=== PATIENT | male | born 1965 | race Caucasian/White ===

== ENCOUNTER 2017-05-30 21:32 | Inpatient (IN) | payer SELFPAY ==
[~2017-05-30] VITALS: Ht 167.6 cm; Wt 87.5 kg
[~2017-05-30 21:32] MED LIST: FERR-43 PO; FURO20TA4 PO; OMEP20CA10 PO
[2017-05-31] VITALS (8 sets, daily range): BP systolic 90–118; BP diastolic 50–72
[2017-05-31] MEDS ORDERED: ONDANSETRON HCL 4MG/2ML VIAL IV ONE
[2017-05-31] MEDS ORDERED: FAMOTIDINE 20MG/2ML VIAL IV ONE
[2017-05-31 00:39] LABS: CHLORIDE 101 mEq/L (98-107)
[2017-05-31 00:45] LABS: INR 1.3; PARTIAL THROMBOPLASTIN TIME 25.6 sec (24.0-34.0); PROTHROMBIN TIME 14.1 sec
[2017-05-31 00:47] LABS: CARBON DIOXIDE 26 mEq/L (21-32); ETHANOL BLOOD < 10 mg/dL
[2017-05-31 01:23] LABS: BASOPHILS % 0.6 % (0.0-2.0); EOSINOPHILS % 1.8 % (0.0-5.0); HEMATOCRIT. 26.3 % (42.0-52.0); HEMOGLOBIN. 8.6 g/dL (14.0-18.0); LYMPHOCYTES % 8.5 % (20.0-50.0); MEAN CORPUSCULAR HEMOGLOBIN 24.2 pg (28.0-32.0); MEAN CORPUSCULAR VOLUME 74.3 fL (80.0-94.0); MONOCYTES % 8.5 % (2.0-8.0); NEUTROPHILS % 80.6 % (40.0-76.0); RED BLOOD CELL COUNT 3.54 mill/uL (4.7-6.1); RED CELL DISTRIBUTION WIDTH 20.1 % (11.6-14.6)
[2017-05-31 01:26] LABS: PLATELET 36 x1000/uL (130-400)
[2017-05-31] MEDS ORDERED: OCTREOTIDE 1,000 MCG in SODIUM CHLORIDE 0.9% 100 ML IV ONE (05:15)
[2017-05-31 05:23] LABS: CLARITY URINE CLEAR (CLEAR); COLOR URINE DARK YELLOW (YELLOW); GLUCOSE URINE TRACE (NEGATIVE); KETONES URINE 2+ (NEGATIVE); LEUKOCYTE ESTERASE URINE NEGATIVE (NEGATIVE); NITRITE URINE POSITIVE (NEGATIVE); OCCULT BLOOD URINE NEGATIVE (NEGATIVE); PH URINE 6.5 (4.5-8.0); PROTEIN URINE TRACE (NEGATIVE); SPECIFIC GRAVITY URINE 1.035 (1.005-1.030)
[2017-05-31] MEDS ORDERED: OCTREOTIDE 1,000 MCG in SODIUM CHLORIDE 0.9% 98 ML IV SCH (06:15)
[2017-05-31 07:07] LABS: PLATELET ESTIMATE MARKEDLY DECREASED
[2017-05-31] MEDS ORDERED: DIPHENHYDRAMINE 50MG/ML VIAL IV PRN (11:00)
[2017-05-31] MEDS ORDERED: CLONIDINE 0.1MG TABLET PO PRN (11:00)
[2017-05-31] MEDS ORDERED: IPRATROPIUM/ALBUTEROL 0.5-3(2.5)MG/3ML NEB INH PRN (11:00)
[2017-05-31] MEDS ORDERED: MAGNESIUM/ALUMINUM HYDROXIDE/SIMETHICONE 30ML UDC PO PRN (11:00)
[2017-05-31] MEDS ORDERED: LORAZEPAM 2MG/ML CPJ IV PRN (11:00)
[2017-05-31] MEDS ORDERED: PANTOPRAZOLE 80 MG in SODIUM CHLORIDE 0.9% 80 ML IV SCH (12:30)
[2017-05-31] MEDS: ONDANSETRON HCL 4MG/2ML VIAL IV PRN (20:34)
[2017-05-31] MEDS: PANTOPRAZOLE SODIUM 40 MG/VIAL IV SCH (20:34)
[2017-06-01] VITALS (21 sets, daily range): BP systolic 87–135; BP diastolic 52–91
[2017-06-01] MEDS: ONDANSETRON HCL 4MG/2ML VIAL IV PRN (02:54)
[2017-06-01] MEDS: ACETAMINOPHEN 325MG TABLET PO PRN (02:55)
[2017-06-01 06:04] LABS: INR 1.7; PARTIAL THROMBOPLASTIN TIME 23.6 sec (24.0-34.0); PROTHROMBIN TIME 17.4 sec
[2017-06-01 06:27] LABS: BASOPHILS % 0.4 % (0.0-2.0); HEMATOCRIT. 24.2 % (42.0-52.0); HEMOGLOBIN. 7.9 g/dL (14.0-18.0); LYMPHOCYTES % 9.7 % (20.0-50.0); MEAN CORPUSCULAR HEMOGLOBIN 27.2 pg (28.0-32.0); MEAN PLATELET VOLUME 9.4 fl (7.4-10.4); MONOCYTES % 11.6 % (2.0-8.0); NEUTROPHILS % 78.3 % (40.0-76.0); PLATELET 137 x1000/uL (130-400); RED BLOOD CELL COUNT 2.91 mill/uL (4.7-6.1); RED CELL DISTRIBUTION WIDTH 20.9 % (11.6-14.6)
[2017-06-01] MEDS: PANTOPRAZOLE SODIUM 40 MG/VIAL IV SCH ×2 (08:11→21:59)
[2017-06-01] MEDS ORDERED: SIMETHICONE 40 MG/0.6 ML 30ML ONE (12:15)
[2017-06-01] MEDS ORDERED: FENTANYL CITRATE/PF 50MCG/ML 2ML VIAL ONE (12:15)
[2017-06-01] MEDS ORDERED: MIDAZOLAM HCL 5 MG/5 ML VIAL ONE (12:15)
[2017-06-01] MEDS ORDERED: FENTANYL CITRATE/PF 50MCG/ML 2ML VIAL IV PRN (12:30)
[2017-06-01] MEDS ORDERED: MIDAZOLAM HCL 5 MG/5 ML VIAL IV PRN (12:30)
[2017-06-01] MEDS ORDERED: OCTREOTIDE 1,000 MCG in SODIUM CHLORIDE 0.9% 100 ML IV ONE (13:00)
[2017-06-01] MEDS ORDERED: SODIUM CHLORIDE 0.9% 10ML VIAL ONE (13:47)
[2017-06-01] MEDS ORDERED: OCTREOTIDE ACETATE 50 MCG/ML 1ML IV SCH (14:00)
[2017-06-01] MEDS: OCTREOTIDE 1,000 MCG in SODIUM CHLORIDE 0.9% 100 ML IV SCH (14:07)
[2017-06-01 18:51] LABS: HEMATOCRIT 30.2 % (42.0-52.0); HEMOGLOBIN 9.9 g/dL (14.0-18.0)
[2017-06-01] MEDS: CHLORDIAZEPOXIDE 25MG CAPSULE PO SCH (21:58)
[2017-06-02] VITALS (35 sets, daily range): BP systolic 63–135; BP diastolic 34–91
[2017-06-02 02:19] LABS: HEMATOCRIT 27.6 % (42.0-52.0); HEMOGLOBIN 9.4 g/dL (14.0-18.0)
[2017-06-02] MEDS: CHLORDIAZEPOXIDE 25MG CAPSULE PO SCH ×3 (06:00→22:00)
[2017-06-02] MEDS ORDERED: SODIUM CHLORIDE 0.9% 1,000 ML IV SCH (09:15)
[2017-06-02 09:48] LABS: HEMOGLOBIN 9.4 g/dL (14.0-18.0)
[2017-06-02] MEDS: PROPRANOLOL HCL 20MG TABLET PO SCH ×2 (10:00→21:00)
[2017-06-02] MEDS: OCTREOTIDE 1,000 MCG in SODIUM CHLORIDE 0.9% 100 ML IV SCH (10:11)
[2017-06-02] MEDS ORDERED: ACETAMINOPHEN 650MG SUPP PR PRN ×2 (11:30→17:30)
[2017-06-02 15:44] LABS: HEMATOCRIT 28.2 % (42.0-52.0); HEMOGLOBIN 9.2 g/dL (14.0-18.0)
[2017-06-02 16:00] LABS: CARBON DIOXIDE 25 mEq/L (21-32); CHLORIDE 116 mEq/L (98-107)
[2017-06-02] MEDS: SODIUM CHLORIDE 0.45% 1,000 ML IV SCH (17:37)
[2017-06-02 17:46] LABS: HEMATOCRIT. 27.7 % (42.0-52.0); HEMOGLOBIN. 9.1 g/dL (14.0-18.0); MEAN CORPUSCULAR HEMOGLOBIN 28.3 pg (28.0-32.0); MEAN CORPUSCULAR VOLUME 85.9 fL (80.0-94.0); MEAN PLATELET VOLUME 8.8 fl (7.4-10.4); PLATELET 138 x1000/uL (130-400); RED BLOOD CELL COUNT 3.22 mill/uL (4.7-6.1); RED CELL DISTRIBUTION WIDTH 19.7 % (11.6-14.6)
[2017-06-02] MEDS: LORAZEPAM 2MG/ML CPJ IV PRN ×3 (17:54→22:57)
[2017-06-02 18:12] LABS: BG BASE EXCESS -9.7 mmol/L (-2.0-2.0); BG CARBOXYHEMOGLOBIN 0.3 % (0.5-1.5); BG DEOXYHEMOGLOBIN 1.2 % (0.0-5.0); BG FRACTION INSPIRED OXYGEN 100; BG HCO3 ACT 14.6 mmol/L (22.0-26.0); BG METHEMOGLOBIN 0.3 % (0.0-1.5); BG OXYGEN SATURATION 98.8 % (92.0-98.5); BG OXYHEMOGLOBIN 98.2 % (94.0-97.0); BG PCO2 26.9 mmHg (35.0-45.0); BG PH 7.352 (7.350-7.450); BG PO2 226.4 mmHg (75.0-100.0); BG SAMPLE SITE RIGHT RADIAL; BG TOTAL HEMOGLOBIN 10.2 g/dL (12.0-18.0); BG VENT MODE MASK - NRB
[2017-06-02 18:53] LABS: AMMONIA 325 uMol/L (<32)
[2017-06-02] MEDS ORDERED: CEFTRIAXONE 1 G PREMIX 50 ML IV SCH (20:00)
[2017-06-02] MEDS: LACTULOSE 20G/30ML UDC PO SCH ×2 (20:38→23:52)
[2017-06-02] MEDS ORDERED: LEVOFLOXACIN 500MG PREMIX 100 ML IV SCH (21:00)
[2017-06-02] MEDS ORDERED: RIFAXIMIN 550 MG TABLET PO SCH (21:00)
[2017-06-02 21:17] LABS: NUCLEATED RED BLOOD CELLS 3 /100 WBC; PLATELET ESTIMATE SLIGHTLY DECREASED
[2017-06-02] MEDS: LEVETIRACETAM 250 MG in SODIUM CHLORIDE 0.9% 100 ML IV SCH (22:59)
[2017-06-02] MEDS ORDERED: LORAZEPAM 20 MG in DEXT 5% WATER 90 ML IV PRN (23:30)
[2017-06-02] MEDS: ACETAMINOPHEN 325MG TABLET PO PRN (23:53)
[2017-06-03] VITALS (105 sets, daily range): BP systolic 25–160; BP diastolic 16–103
[2017-06-03 00:20] LABS: HEMATOCRIT 29.6 % (42.0-52.0); HEMOGLOBIN 9.1 g/dL (14.0-18.0)
[2017-06-03] MEDS ORDERED: PHENYLEPHRINE 20 MG in DEXT 5% WATER 248 ML IV PRN (02:45)
[2017-06-03] MEDS ORDERED: NOREPINEPHRINE 32 MG in DEXT 5% WATER 468 ML IV PRN (03:15)
[2017-06-03] MEDS: SODIUM CHLORIDE 0.45% 1,000 ML IV SCH (03:38)
[2017-06-03] MEDS ORDERED: PHENYLEPHRINE 40 MG in DEXT 5% WATER 246 ML IV PRN (03:45)
[2017-06-03 04:03] LABS: BG BASE EXCESS -18.1 mmol/L (-2.0-2.0); BG CARBOXYHEMOGLOBIN 0.3 % (0.5-1.5); BG DEOXYHEMOGLOBIN 3.6 % (0.0-5.0); BG FRACTION INSPIRED OXYGEN 100; BG HCO3 ACT 11.2 mmol/L (22.0-26.0); BG METHEMOGLOBIN 0.7 % (0.0-1.5); BG OXYGEN SATURATION 96.4 % (92.0-98.5); BG OXYHEMOGLOBIN 95.4 % (94.0-97.0); BG PCO2 40.8 mmHg (35.0-45.0); BG PH 7.057 (7.350-7.450); BG PO2 133.9 mmHg (75.0-100.0); BG SAMPLE SITE RIGHT RADIAL; BG TIDAL VOLUME(mL) 500 mL; BG TOTAL HEMOGLOBIN 9.5 g/dL (12.0-18.0); BG VENT MODE VENT - A/C; BG VENT RATE 14 set
[2017-06-03] MEDS ORDERED: SODIUM BICARBONATE 8.4% 1 MEQ/ML 50ML SYR IV NR ×2 (04:15→08:30)
[2017-06-03] MEDS: LACTULOSE 20G/30ML UDC PO SCH ×4 (04:23→21:11)
[2017-06-03] MEDS: PROPOFOL 10MG/ML 100ML 100 ML IV PRN ×5 (04:25→17:00)
[2017-06-03] MEDS ORDERED: SODIUM ACETATE 100 MEQ in DEXTROSE 5% WATER 1,000 ML IV SCH (04:45)
[2017-06-03] MEDS: CHLORDIAZEPOXIDE 25MG CAPSULE PO SCH (05:02)
[2017-06-03] MEDS: MIDAZOLAM HCL 100 MG in DEXT 5% WATER 80 ML IV PRN ×2 (05:37→11:01)
[2017-06-03] MEDS ORDERED: VASOPRESSIN 10 UNIT in SODIUM CHLORIDE 0.9% 99.5 ML IV PRN (05:45)
[2017-06-03 05:52] LABS: HEMATOCRIT. 26.9 % (42.0-52.0); MEAN CORPUSCULAR HEMOGLOBIN 33.6 pg (28.0-32.0); MEAN CORPUSCULAR VOLUME 100.7 fL (80.0-94.0); MEAN PLATELET VOLUME 10.3 fl (7.4-10.4); PLATELET 142 x1000/uL (130-400); RED BLOOD CELL COUNT 2.67 mill/uL (4.7-6.1); RED CELL DISTRIBUTION WIDTH 20.8 % (11.6-14.6)
[2017-06-03] MEDS: OCTREOTIDE 1,000 MCG in SODIUM CHLORIDE 0.9% 100 ML IV SCH (06:09)
[2017-06-03 07:50] LABS: BG BASE EXCESS -16.8 mmol/L (-2.0-2.0); BG CARBOXYHEMOGLOBIN 0.1 % (0.5-1.5); BG DEOXYHEMOGLOBIN 1.4 % (0.0-5.0); BG HCO3 ACT 10.8 mmol/L (22.0-26.0); BG METHEMOGLOBIN 0.8 % (0.0-1.5); BG OXYGEN SATURATION 98.6 % (92.0-98.5); BG OXYHEMOGLOBIN 97.7 % (94.0-97.0); BG PCO2 32.3 mmHg (35.0-45.0); BG PH 7.143 (7.350-7.450); BG PO2 197.4 mmHg (75.0-100.0); BG SAMPLE SITE RIGHT BRACHIAL; BG TIDAL VOLUME(mL) 500 mL; BG VENT MODE VENT - A/C; BG VENT RATE 14 set
[2017-06-03] MEDS: LORAZEPAM 2MG/ML CPJ IV PRN (07:53)
[2017-06-03] MEDS ORDERED: PHENYTOIN SODIUM 1,000 MG in SODIUM CHLORIDE 0.9% 100 ML IV NR (08:00)
[2017-06-03] MEDS: LEVETIRACETAM 250 MG in SODIUM CHLORIDE 0.9% 100 ML IV SCH (08:00)
[2017-06-03 08:17] LABS: CARBON DIOXIDE 17 mEq/L (21-32); CHLORIDE 110 mEq/L (98-107)
[2017-06-03] MEDS ORDERED: LORAZEPAM 2MG/ML CPJ IV NR (08:22)
[2017-06-03 08:42] LABS: PHOSPHORUS 13.8 mg/dL (2.5-4.9)
[2017-06-03 08:43] LABS: AMMONIA 762 uMol/L (<32)
[2017-06-03] MEDS ORDERED: CALCIUM GLUCONATE 1,000 MG in DEXT 5% WATER 90 ML IV NR (09:00)
[2017-06-03] MEDS ORDERED: OCTREOTIDE 1,000 MCG in SODIUM CHLORIDE 0.9% 100 ML IV SCH (09:00)
[2017-06-03] MEDS ORDERED: INSULIN REGULAR 0.5UNIT/ML SYR(NEO) IV ONE (09:00)
[2017-06-03] MEDS ORDERED: DEXTROSE 50% WATER 50ML SYRINGE IV NR (09:00)
[2017-06-03] MEDS ORDERED: INSULIN REGULAR (HUMULIN R) UD 100 UNITS/ML SYR IV NR (09:04)
[2017-06-03] MEDS ORDERED: IPRATROPIUM/ALBUTEROL 0.5-3(2.5)MG/3ML NEB HHN PRN (09:15)
[2017-06-03] MEDS ORDERED: PANTOPRAZOLE SODIUM 40 MG/VIAL IV ONE (09:26)
[2017-06-03] MEDS: PANTOPRAZOLE 80 MG in SODIUM CHLORIDE 0.9% 100 ML IV SCH ×2 (09:44→18:52)
[2017-06-03 09:48] LABS: *AMPHETAMINES SCREEN URINE NEGATIVE (NEGATIVE); *BARBITURATES SCREEN URINE NEGATIVE (NEGATIVE); *BENZODIAZEPINES SCREEN URINE PRESUMTIVE POSITIVE (NEGATIVE); *COCAINE SCREEN URINE NEGATIVE (NEGATIVE); CANNABINOID URINE SCREEN NEGATIVE (NEGATIVE); METHADONE URINE SCREEN NEGATIVE (NEGATIVE); OPIATES URINE SCREEN NEGATIVE (NEGATIVE); PHENCYCLIDINE URINE SCREEN NEGATIVE (NEGATIVE)
[2017-06-03] MEDS ORDERED: LACTULOSE 300 ML in WATER FOR INJECTION,STERILE 700 ML PR NR (10:00)
[2017-06-03] MEDS: SODIUM CHLORIDE 0.9% IV PRN ×3 (10:22→21:16)
[2017-06-03] MEDS: VASOPRESSIN IV PRN ×3 (10:22→21:16)
[2017-06-03 10:33] LABS: NUCLEATED RED BLOOD CELLS 9 /100 WBC; PLATELET ESTIMATE NORMAL
[2017-06-03] MEDS: FOLIC ACID 1MG TABLET PO SCH (10:45)
[2017-06-03] MEDS: MULTIVITAMINS,THER W-MINERALS TABLET PO SCH (10:45)
[2017-06-03] MEDS: THIAMINE HCL 100MG TABLET PO SCH (10:45)
[2017-06-03] MEDS: METRONIDAZOLE 500 MG PREMIX 100 ML IV SCH ×2 (11:01→18:03)
[2017-06-03] MEDS: CEFEPIME 1,000 MG in DEXTROSE 5% WATER 50 ML IV SCH (11:01)
[2017-06-03 11:47] LABS: CREATINE KINASE MB FRACTION 60.7 ng/mL (0.5-3.6); D-DIMER 17.68 mg/L FEU (<0.50); INR 2.6; PROTHROMBIN TIME 27.4 sec
[2017-06-03] MEDS: RIFAXIMIN 550 MG TABLET PO SCH ×2 (12:08→21:11)
[2017-06-03 12:44] LABS: TROPONIN I 0.77 ng/mL (0.00-0.04)
[2017-06-03 13:15] LABS: BG BASE EXCESS -8.2 mmol/L (-2.0-2.0); BG CARBOXYHEMOGLOBIN 0.3 % (0.5-1.5); BG DEOXYHEMOGLOBIN 1.2 % (0.0-5.0); BG HCO3 ACT 18.8 mmol/L (22.0-26.0); BG METHEMOGLOBIN 0.6 % (0.0-1.5); BG OXYGEN SATURATION 98.8 % (92.0-98.5); BG OXYHEMOGLOBIN 97.9 % (94.0-97.0); BG PCO2 46.2 mmHg (35.0-45.0); BG PH 7.228 (7.350-7.450); BG PO2 303.9 mmHg (75.0-100.0); BG SAMPLE SITE RIGHT BRACHIAL; BG TIDAL VOLUME(mL) 500 mL; BG TOTAL HEMOGLOBIN 7.8 g/dL (12.0-18.0); BG VENT MODE VENT - A/C; BG VENT RATE 14 set
[2017-06-03] MEDS: IPRATROPIUM/ALBUTEROL 0.5-3(2.5)MG/3ML NEB HHN SCH ×2 (13:41→19:57)
[2017-06-03] MEDS: SODIUM ACETATE 100 MEQ in DEXTROSE 5% WATER 1,000 ML IV SCH (16:30)
[2017-06-03] MEDS ORDERED: SUCCINYLCHOLINE CHLORIDE 200MG/10ML VIAL IV ONE (16:45)
[2017-06-03] MEDS: EPINEPHRINE 4 MG in SODIUM CHLORIDE 0.9% 246 ML IV PRN (18:18)
[2017-06-03 19:04] LABS: HEMATOCRIT 26.4 % (42.0-52.0); HEMOGLOBIN 8.8 g/dL (14.0-18.0); MEAN CORPUSCULAR VOLUME 92.7 fL (80.0-94.0); PLATELET 60 x1000/uL (130-400); RED BLOOD CELL COUNT 2.85 mill/uL (4.7-6.1); RED CELL DISTRIBUTION WIDTH 17.7 % (11.6-14.6)
[2017-06-03] MEDS ORDERED: SODIUM POLYSTYRENE SULFONATE 15 G/60 ML BOT PO NR (19:45)
[2017-06-03] MEDS ORDERED: PHYTONADIONE 10MG/ML AMP SUBCUT NR ×2 (19:45→23:45)
[2017-06-03 20:16] LABS: AMMONIA 95 uMol/L (<32)
[2017-06-03] MEDS ORDERED: LEVETIRACETAM 500 MG in SODIUM CHLORIDE 0.9% 100 ML IV SCH (21:00)
[2017-06-03] MEDS ORDERED: PHENYTOIN SODIUM 100MG/2ML VIAL IV SCH (21:00)
[2017-06-03 21:03] LABS: PHOSPHORUS 11.3 mg/dL (2.5-4.9)
[2017-06-03] MEDS: LEVETIRACETAM 1,000 MG in SODIUM CHLORIDE 0.9% 100 ML IV SCH (21:12)
[2017-06-03] MEDS ORDERED: CALCIUM CHLORIDE 1,000 MG in DEXT 5% WATER 90 ML IV NR (21:30)
[2017-06-03] MEDS: PHENYTOIN SODIUM 300MG in SODIUM CHLORIDE 0.9% 50ML IV SCH (21:49)
[2017-06-03 23:03] LABS: HEMATOCRIT 23.2 % (42.0-52.0); HEMOGLOBIN 7.3 g/dL (14.0-18.0)
[2017-06-03 23:04] LABS: INR 1.9; PROTHROMBIN TIME 20.1 sec
[2017-06-04] VITALS (111 sets, daily range): BP systolic 80–148; BP diastolic 29–82
[2017-06-04] MEDS: SODIUM ACETATE 100 MEQ in DEXTROSE 5% WATER 1,000 ML IV SCH ×4 (00:45→21:02)
[2017-06-04] MEDS: EPINEPHRINE 4 MG in SODIUM CHLORIDE 0.9% 246 ML IV PRN ×3 (00:46→16:02)
[2017-06-04] MEDS: METRONIDAZOLE 500 MG PREMIX 100 ML IV SCH ×3 (01:14→17:11)
[2017-06-04] MEDS: IPRATROPIUM/ALBUTEROL 0.5-3(2.5)MG/3ML NEB HHN SCH ×4 (01:56→20:26)
[2017-06-04 02:41] LABS: HEMATOCRIT 29.6 % (42.0-52.0); HEMOGLOBIN 8.9 g/dL (14.0-18.0)
[2017-06-04] MEDS: OCTREOTIDE 1,000 MCG in SODIUM CHLORIDE 0.9% 100 ML IV SCH (03:17)
[2017-06-04] MEDS: PANTOPRAZOLE 80 MG in SODIUM CHLORIDE 0.9% 100 ML IV SCH ×2 (05:12→16:03)
[2017-06-04] MEDS: LACTULOSE 20G/30ML UDC PO SCH ×3 (05:12→21:20)
[2017-06-04 06:04] LABS: HEMATOCRIT 25.6 % (42.0-52.0); HEMOGLOBIN 8.1 g/dL (14.0-18.0); MEAN CORPUSCULAR HEMOGLOBIN 29.2 pg (28.0-32.0); MEAN CORPUSCULAR VOLUME 92.7 fL (80.0-94.0); PLATELET 64 x1000/uL (130-400); RED BLOOD CELL COUNT 2.77 mill/uL (4.7-6.1)
[2017-06-04 06:11] LABS: PHENYTOIN 6.4 ug/mL (10-20)
[2017-06-04 06:52] LABS: INR 2.3; PROTHROMBIN TIME 24.4 sec
[2017-06-04 07:31] LABS: PHOSPHORUS 15.1 mg/dL (2.5-4.9)
[2017-06-04 07:57] LABS: BG BASE EXCESS -10.4 mmol/L (-2.0-2.0); BG CARBOXYHEMOGLOBIN 0.3 % (0.5-1.5); BG DEOXYHEMOGLOBIN 3.4 % (0.0-5.0); BG FRACTION INSPIRED OXYGEN 40; BG HCO3 ACT 15.4 mmol/L (22.0-26.0); BG OXYGEN SATURATION 96.6 % (92.0-98.5); BG OXYHEMOGLOBIN 95.3 % (94.0-97.0); BG PCO2 34.1 mmHg (35.0-45.0); BG PH 7.274 (7.350-7.450); BG PO2 110.7 mmHg (75.0-100.0); BG SAMPLE SITE RIGHT RADIAL; BG TIDAL VOLUME(mL) 550 mL; BG TOTAL HEMOGLOBIN 8.4 g/dL (12.0-18.0); BG VENT MODE VENT - A/C; BG VENT RATE 16 set
[2017-06-04] MEDS: SODIUM CHLORIDE 0.9% IV PRN (08:26)
[2017-06-04] MEDS: VASOPRESSIN IV PRN (08:26)
[2017-06-04] MEDS: LEVETIRACETAM 1,000 MG in SODIUM CHLORIDE 0.9% 100 ML IV SCH ×2 (08:31→21:20)
[2017-06-04] MEDS: CALCIUM GLUCONATE 1,000 MG in DEXT 5% WATER 90 ML IV SCH ×2 (08:32→21:03)
[2017-06-04] MEDS: RIFAXIMIN 550 MG TABLET PO SCH ×2 (08:57→21:00)
[2017-06-04] MEDS: FOLIC ACID 1MG TABLET PO SCH (08:57)
[2017-06-04] MEDS: THIAMINE HCL 100MG TABLET PO SCH (08:57)
[2017-06-04] MEDS: MULTIVITAMINS,THER W-MINERALS TABLET PO SCH (08:57)
[2017-06-04] MEDS ORDERED: SODIUM BICARBONATE 8.4% 1 MEQ/ML 50ML SYR IV NR (09:36)
[2017-06-04 10:43] LABS: HEMATOCRIT 24.9 % (42.0-52.0)
[2017-06-04 11:16] LABS: AMMONIA 121 uMol/L (<32)
[2017-06-04] MEDS: CEFEPIME 1,000 MG in DEXTROSE 5% WATER 50 ML IV SCH (11:18)
[2017-06-04] MEDS ORDERED: PHENYTOIN SODIUM 600 MG in SODIUM CHLORIDE 0.9% 100 ML IV NR (14:00)
[2017-06-04 16:42] LABS: HEMATOCRIT 23.1 % (42.0-52.0); HEMOGLOBIN 7.8 g/dL (14.0-18.0)
[2017-06-04] MEDS: PHENYTOIN SODIUM 300MG in SODIUM CHLORIDE 0.9% 50ML IV SCH (22:13)
[2017-06-04 23:13] LABS: HEMATOCRIT 29.6 % (42.0-52.0); HEMOGLOBIN 9.8 g/dL (14.0-18.0)
[2017-06-05] VITALS (93 sets, daily range): BP systolic 76–173; BP diastolic 41–99
[2017-06-05] MEDS: PANTOPRAZOLE 80 MG in SODIUM CHLORIDE 0.9% 100 ML IV SCH ×3 (02:19→23:46)
[2017-06-05] MEDS: IPRATROPIUM/ALBUTEROL 0.5-3(2.5)MG/3ML NEB HHN SCH ×4 (02:22→20:02)
[2017-06-05 02:23] LABS: HEMATOCRIT 28.3 % (42.0-52.0); HEMOGLOBIN 9.1 g/dL (14.0-18.0)
[2017-06-05] MEDS: OCTREOTIDE 1,000 MCG in SODIUM CHLORIDE 0.9% 100 ML IV SCH ×2 (02:24→23:47)
[2017-06-05] MEDS: METRONIDAZOLE 500 MG PREMIX 100 ML IV SCH ×3 (02:24→17:24)
[2017-06-05] MEDS: LACTULOSE 20G/30ML UDC PO SCH ×3 (05:34→21:36)
[2017-06-05 05:59] LABS: HEMATOCRIT 27.5 % (42.0-52.0); HEMOGLOBIN 9.1 g/dL (14.0-18.0)
[2017-06-05] MEDS: SODIUM ACETATE 100 MEQ in DEXTROSE 5% WATER 1,000 ML IV SCH ×2 (06:21→17:30)
[2017-06-05] MEDS: EPINEPHRINE 4 MG in SODIUM CHLORIDE 0.9% 246 ML IV PRN (06:21)
[2017-06-05] MEDS: LEVETIRACETAM 1,000 MG in SODIUM CHLORIDE 0.9% 100 ML IV SCH ×2 (09:13→20:51)
[2017-06-05] MEDS: CALCIUM GLUCONATE 1,000 MG in DEXT 5% WATER 90 ML IV SCH (09:13)
[2017-06-05] MEDS: THIAMINE HCL 100MG TABLET PO SCH (10:06)
[2017-06-05] MEDS: CEFEPIME 1,000 MG in DEXTROSE 5% WATER 50 ML IV SCH (10:06)
[2017-06-05] MEDS: FOLIC ACID 1MG TABLET PO SCH (10:06)
[2017-06-05] MEDS: RIFAXIMIN 550 MG TABLET PO SCH ×2 (10:06→20:07)
[2017-06-05] MEDS: MULTIVITAMINS,THER W-MINERALS TABLET PO SCH (10:06)
[2017-06-05 10:24] LABS: HEMATOCRIT 28.9 % (42.0-52.0); HEMOGLOBIN 9.6 g/dL (14.0-18.0)
[2017-06-05] MEDS: PHENYTOIN SODIUM 300MG in SODIUM CHLORIDE 0.9% 50ML IV SCH (20:51)
[2017-06-06] VITALS (93 sets, daily range): BP systolic 72–105; BP diastolic 40–57
[2017-06-06] MEDS: IPRATROPIUM/ALBUTEROL 0.5-3(2.5)MG/3ML NEB HHN SCH ×4 (01:48→20:54)
[2017-06-06] MEDS: SODIUM ACETATE 100 MEQ in DEXTROSE 5% WATER 1,000 ML IV SCH ×3 (02:48→21:24)
[2017-06-06] MEDS: METRONIDAZOLE 500 MG PREMIX 100 ML IV SCH ×3 (02:48→18:04)
[2017-06-06] MEDS: EPINEPHRINE 4 MG in SODIUM CHLORIDE 0.9% 246 ML IV PRN ×2 (03:02→14:14)
[2017-06-06] MEDS: LACTULOSE 20G/30ML UDC PO SCH ×3 (05:19→21:00)
[2017-06-06] MEDS: RIFAXIMIN 550 MG TABLET PO SCH ×2 (08:34→20:01)
[2017-06-06] MEDS: THIAMINE HCL 100MG TABLET PO SCH (08:34)
[2017-06-06] MEDS: FOLIC ACID 1MG TABLET PO SCH (08:34)
[2017-06-06] MEDS: MULTIVITAMINS,THER W-MINERALS TABLET PO SCH (08:39)
[2017-06-06] MEDS: LEVETIRACETAM 1,000 MG in SODIUM CHLORIDE 0.9% 100 ML IV SCH ×2 (09:00→20:01)
[2017-06-06] MEDS: PANTOPRAZOLE 80 MG in SODIUM CHLORIDE 0.9% 100 ML IV SCH ×2 (10:00→18:04)
[2017-06-06] MEDS: CEFEPIME 1,000 MG in DEXTROSE 5% WATER 50 ML IV SCH (11:00)
[2017-06-06] MEDS ORDERED: NA PHOS,M-B/NA PHOS,DI-BA ENEMA 118ML PR NR (15:30)
[2017-06-06] MEDS ORDERED: OCTREOTIDE 1,000 MCG in SODIUM CHLORIDE 0.9% 100 ML IV SCH (18:04)
[2017-06-06] MEDS: OCTREOTIDE 1,000 MCG in SODIUM CHLORIDE 0.9% 100 ML IV SCH (18:04)
[2017-06-06] MEDS: PHENYTOIN SODIUM 300MG in SODIUM CHLORIDE 0.9% 50ML IV SCH (20:20)
[2017-06-07] VITALS (90 sets, daily range): BP systolic 75–131; BP diastolic 40–77
[2017-06-07] MEDS: METRONIDAZOLE 500 MG PREMIX 100 ML IV SCH ×3 (01:00→18:00)
[2017-06-07] MEDS: EPINEPHRINE 4 MG in SODIUM CHLORIDE 0.9% 246 ML IV PRN (02:05)
[2017-06-07] MEDS: IPRATROPIUM/ALBUTEROL 0.5-3(2.5)MG/3ML NEB HHN SCH ×4 (02:14→20:07)
[2017-06-07] MEDS: PANTOPRAZOLE 80 MG in SODIUM CHLORIDE 0.9% 100 ML IV SCH (04:03)
[2017-06-07] MEDS: LACTULOSE 20G/30ML UDC PO SCH ×3 (05:00→21:05)
[2017-06-07] MEDS: SODIUM ACETATE 100 MEQ in DEXTROSE 5% WATER 1,000 ML IV SCH (05:50)
[2017-06-07] MEDS: RIFAXIMIN 550 MG TABLET PO SCH ×2 (08:59→21:05)
[2017-06-07] MEDS: FOLIC ACID 1MG TABLET PO SCH (08:59)
[2017-06-07] MEDS: MULTIVITAMINS,THER W-MINERALS TABLET PO SCH (08:59)
[2017-06-07] MEDS: LEVETIRACETAM 1,000 MG in SODIUM CHLORIDE 0.9% 100 ML IV SCH ×2 (09:00→21:05)
[2017-06-07] MEDS: THIAMINE HCL 100MG TABLET PO SCH (09:00)
[2017-06-07] MEDS ORDERED: ALBUMIN HUMAN 25GM/500ML (5%) IV SCH (10:00)
[2017-06-07] MEDS ORDERED: SODIUM CHLORIDE 0.9% 1,000 ML IV ONE (10:00)
[2017-06-07] MEDS: CEFEPIME 1,000 MG in DEXTROSE 5% WATER 50 ML IV SCH (11:00)
[2017-06-07] MEDS: PHENYTOIN SODIUM 300MG in SODIUM CHLORIDE 0.9% 50ML IV SCH (21:05)
[2017-06-08] VITALS (84 sets, daily range): BP systolic 43–82; BP diastolic 25–46
[2017-06-08] MEDS: IPRATROPIUM/ALBUTEROL 0.5-3(2.5)MG/3ML NEB HHN SCH ×4 (01:49→20:20)
[2017-06-08] MEDS: METRONIDAZOLE 500 MG PREMIX 100 ML IV SCH ×3 (02:27→18:22)
[2017-06-08] MEDS: LACTULOSE 20G/30ML UDC PO SCH ×3 (05:07→21:14)
[2017-06-08] MEDS: FOLIC ACID 1MG TABLET PO SCH (08:15)
[2017-06-08] MEDS: MULTIVITAMINS,THER W-MINERALS TABLET PO SCH (08:15)
[2017-06-08] MEDS: THIAMINE HCL 100MG TABLET PO SCH (08:15)
[2017-06-08] MEDS: RIFAXIMIN 550 MG TABLET PO SCH ×2 (08:15→20:26)
[2017-06-08] MEDS: LEVETIRACETAM 1,000 MG in SODIUM CHLORIDE 0.9% 100 ML IV SCH ×2 (08:30→20:26)
[2017-06-08] MEDS ORDERED: PANTOPRAZOLE SODIUM 40 MG/VIAL IV SCH (09:00)
[2017-06-08] MEDS: CEFEPIME 1,000 MG in DEXTROSE 5% WATER 50 ML IV SCH (12:00)
[2017-06-08] MEDS ORDERED: PHENYTOIN SODIUM 100MG/2ML VIAL IV ONE (20:28)
[2017-06-08] MEDS: PHENYTOIN SODIUM 300MG in SODIUM CHLORIDE 0.9% 50ML IV SCH (20:42)
[2017-06-09] VITALS: BP 39/24
[2017-06-09 00:30] VITALS: BP 38/23
[2017-06-09 01:00] VITALS: BP 34/22
[2017-06-09 01:30] VITALS: BP 37/22
[2017-06-09 02:00] VITALS: BP 30/18
== END 2017-06-09 02:30 | disposition expired | DRG 710 ==
LOC: ER 21:51 → 6EST 05-31 05:22 → EDBEDREQ 05-31 05:26 → ENRESERV 05-31 07:01 → 6EST 06-01 06:20 → 8WST 06-01 14:28 → CVICU 06-02 18:14
PROVIDERS: ADMIT Internal Medicine; ATTEND Internal Medicine
PROC: 30233N1 Transfusion of Nonautologous Red Blood Cells into Peripheral Vein, Percutaneous Approach (ICD-10-PCS; 2017-05-31)
PROC: 30233R1 Transfusion of Nonautologous Platelets into Peripheral Vein, Percutaneous Approach (ICD-10-PCS; 2017-05-31)
PROC: 06L34CZ Occlusion of Esophageal Vein with Extraluminal Device, Percutaneous Endoscopic Approach (ICD-10-PCS; 2017-06-01)
PROC: 30233L1 Transfusion of Nonautologous Fresh Plasma into Peripheral Vein, Percutaneous Approach (ICD-10-PCS; 2017-06-01)
PROC: 30233K1 Transfusion of Nonautologous Frozen Plasma into Peripheral Vein, Percutaneous Approach (ICD-10-PCS; 2017-06-01)
PROC: 02HV33Z Insertion of Infusion Device into Superior Vena Cava, Percutaneous Approach (ICD-10-PCS; principal; 2017-06-03)
PROC: 5A1955Z Respiratory Ventilation, Greater than 96 Consecutive Hours (ICD-10-PCS; 2017-06-03)
PROC: 0BH17EZ Insertion of Endotracheal Airway into Trachea, Via Natural or Artificial Opening (ICD-10-PCS; 2017-06-03)
PROC: B548ZZA Ultrasonography of Superior Vena Cava, Guidance (ICD-10-PCS; 2017-06-03)
DX: A41.9 Sepsis, unspecified organism (principal); J96.01 Acute respiratory failure with hypoxia; I46.9 Cardiac arrest, cause unspecified; K72.01 Acute and subacute hepatic failure with coma; N17.0 Acute kidney failure with tubular necrosis; K29.21 Alcoholic gastritis with bleeding; E87.0 Hyperosmolality and hypernatremia; J69.0 Pneumonitis due to inhalation of food and vomit; K76.6 Portal hypertension; R65.21 Severe sepsis with septic shock; I85.11 Secondary esophageal varices with bleeding; D61.818 Other pancytopenia; D68.9 Coagulation defect, unspecified; K70.31 Alcoholic cirrhosis of liver with ascites; D62 Acute posthemorrhagic anemia; F17.210 Nicotine dependence, cigarettes, uncomplicated; Z60.2 Problems related to living alone; R74.0 Nonspecific elevation of levels of transaminase and lactic acid dehydrogenase [LDH]; E83.39 Other disorders of phosphorus metabolism; Z51.5 Encounter for palliative care; E83.51 Hypocalcemia; E87.5 Hyperkalemia; G40.911 Epilepsy, unspecified, intractable, with status epilepticus; N39.0 Urinary tract infection, site not specified; Z66 Do not resuscitate; E43 Unspecified severe protein-calorie malnutrition; F10.239 Alcohol dependence with withdrawal, unspecified; Z68.25 Body mass index [BMI] 25.0-25.9, adult; Z71.41 Alcohol abuse counseling and surveillance of alcoholic
CPT/HCPCS: 36415; 36430; 36569; 36600; 70450; 71010; 76937; 80048; 80053; 80076; 80185; 80305; 81001; 82140; 82375; 82550; 82553; 82805; 82962; 83605; 83690; 83735; 84100; 84478; 84484; 85014; 85018; 85025; 85027; 85379; 85384; 85610; 85730; 86850; 86900; 86920; 86927; 86945; 87040; 87086; 93005; 94003; 94640; 96365; 96375; 99285; A4216; C1725; C9113; G0482; J0171; J0330; J0610; J0692; J0696; J1165; J1815; J1953; J1956; J2060; J2250; J2354; J2370; J2405; J2704; J3010; J3430; J3490; J7030; J7040; J7050; J7060; J7070; J7620; P9016; P9017; P9034; P9041; A4315